=== PATIENT | male | born 1960 | race Two or more races ===

== ENCOUNTER 2023-06-12 23:34 | Emergency (ER) | payer OTHER ==
[~2023-06-12] VITALS: Ht 172.7 cm; Wt 70.3 kg
[2023-06-12] MEDS ORDERED: WELLBUTRIN XL150 M1 PO (23:52)
[2023-06-12] MEDS ORDERED: BUSPIRONE HCL15 MG PO (23:52)
[2023-06-12] MEDS ORDERED: LORAZEPAM1 MG PO (23:52)
[2023-06-12] MEDS ORDERED: ARIPIPRAZOLE2 MG PO (23:52)
[2023-06-12] MEDS ORDERED: CRESTOR5 MG PO (23:53)
== END 2023-06-13 01:45 | disposition home or self-care (01) ==
LOC: ER 23:34
DX: K52.9 Noninfective gastroenteritis and colitis, unspecified (principal); E86.0 Dehydration